=== PATIENT | female | born 1950 | race Caucasian/White ===

== ENCOUNTER 2017-05-03 20:30 | Outpatient (CLI) | payer MEDICARE | END 2017-05-03 20:31 | disposition home or self-care (01) | LOC: SLEEPLAB 20:30 | PROVIDERS: ATTEND Family Medicine | DX: G47.33 Obstructive sleep apnea (adult) (pediatric) (principal); G47.00 Insomnia, unspecified; R06.83 Snoring | CPT/HCPCS: 95810 ==

== ENCOUNTER 2017-09-16 19:30 | Outpatient (CLI) | payer MEDICARE | END 2017-09-16 19:31 | disposition home or self-care (01) | LOC: SLEEPLAB 19:30 | PROVIDERS: ATTEND Family Medicine | DX: G47.33 Obstructive sleep apnea (adult) (pediatric) (principal); G47.00 Insomnia, unspecified | CPT/HCPCS: 95811 ==

== ENCOUNTER 2018-04-13 07:39 | Outpatient (CLI) | payer MEDICARE ==
--- NOTE | 2018-04-13 08:29 | RAD ---
PA AND LATERAL VIEWS CHEST: HISTORY: Dysphagia, unspecified. FINDINGS: The heart size is normal. The aorta is tortuous. The lungs are expanded without lobar consolidation , pneumothoraces, or pleural effusions. There are degenerative changes in the spine. IMPRESSION: No radiographic evidence of acute cardiopulmonary process. POS: [facility]
--- NOTE | 2018-04-13 10:32 | RAD ---
BIPHASIC ESOPHAGRAM: HISTORY: Dysphagia, unspecified. FINDINGS: Swallowing was grossly unremarkable. There is unobstructed flow of contrast through the esophagus in to the stomach. No stricture, mass, or diverticulum is seen. A tiny hiatal hernia is noted. No GE reflux was demonstrated during the Valsalva maneuver. The patient refused 12 mm barium tablet. IMPRESSION: Small hiatal hernia. POS: [facility]
== END 2018-04-13 07:40 | disposition home or self-care (01) ==
LOC: RAD 07:39
PROVIDERS: ATTEND Family Medicine
DX: R13.10 Dysphagia, unspecified (principal); R06.00 Dyspnea, unspecified; K44.9 Diaphragmatic hernia without obstruction or gangrene
CPT/HCPCS: 71046; 74220

== ENCOUNTER 2022-04-08 08:01 | Outpatient (CLI) | payer MEDICARE | END 2022-04-08 08:02 | disposition home or self-care (01) | LOC: SCSMRI 08:01 | PROVIDERS: ATTEND Family Medicine | DX: M54.12 Radiculopathy, cervical region (principal); M79.661 Pain in right lower leg; M79.662 Pain in left lower leg | CPT/HCPCS: 72148 ==

== ENCOUNTER 2022-05-30 08:04 | Outpatient (CLI) | payer MEDICARE | END 2022-05-30 08:05 | disposition home or self-care (01) | LOC: BICMAMMO 08:04 | PROVIDERS: ATTEND Internal Medicine | DX: R92.2 Inconclusive mammogram (principal) | CPT/HCPCS: 76642; 77065; G0279 ==

== ENCOUNTER 2023-04-22 09:32 | Outpatient (CLI) | payer MEDICARE | END 2023-04-22 09:33 | disposition home or self-care (01) | LOC: SCSMRI 09:32 | PROVIDERS: ATTEND Specialist | DX: M51.16 Intervertebral disc disorders with radiculopathy, lumbar region (principal); M48.062 Spinal stenosis, lumbar region with neurogenic claudication; M47.816 Spondylosis without myelopathy or radiculopathy, lumbar region; M47.817 Spondylosis without myelopathy or radiculopathy, lumbosacral region | CPT/HCPCS: 72148 ==